=== PATIENT | male | born 1995 | race Caucasian/White ===

== ENCOUNTER 2016-11-03 17:10 | Emergency (ER) | payer OTHER ==
[~2016-11-03] VITALS: Ht 180.3 cm; Wt 95.4 kg
[2016-11-03 20:14] LABS: CALCIUM 8.6 mg/dL (8.5-10.1); CARBON DIOXIDE 29.5 mmol/L (21-32); CHLORIDE SERUM 103 mmol/L (98-107); CREATININE SERUM 0.9 mg/dL (0.7-1.3); GFR1 > 60 mL/min; GLUCOSE SERUM 91 mg/dL (74-106); POTASSIUM SERUM 3.7 mmol/L (3.5-5.1); SODIUM SERUM 141 mmol/L (136-145)
[2016-11-03 20:18] LABS: ALBUMIN 3.5 g/dL (3.4-5.0); ALKALINE PHOSPHATASE 142 U/L (46-116); ALT/SGPT 38 U/L (16-63); AMYLASE 44 U/L (25-115); AST/SGOT 17 U/L (15-37); BASOPHIL % 0.1 % (0-2); BILIRUBIN TOTAL 1.1 mg/dL (0.20-1.00); LIPASE 96 IU/L (73-393); PLATELET COUNT 205 x10^3mcL (130-400); TOTAL PROTEIN, SERUM 7.1 g/dL (6.4-8.2)
[2016-11-03 20:42] VITALS: BP 136/74
== END 2016-11-03 20:42 | disposition home or self-care (01) ==
LOC: ED 17:10
PROVIDERS: Emergency Medicine
DX: R19.7 Diarrhea, unspecified (principal); R10.13 Epigastric pain
CPT/HCPCS: 83880; J1885

== ENCOUNTER 2019-07-19 19:36 | Emergency (ER) | payer OTHER, MEDICAID ==
[~2019-07-19] VITALS: Ht 180.3 cm; Wt 112.9 kg
[2019-07-19 20:00] VITALS: BP 140/92; Ht 180.3 cm; Wt 112.9 kg
== END 2019-07-19 20:38 | disposition home or self-care (01) ==
LOC: ED 19:36
DX: S16.1XXA Strain of muscle, fascia and tendon at neck level, initial encounter (principal); M25.512 Pain in left shoulder; R51 Headache; M79.605 Pain in left leg; V43.62XA Car passenger injured in collision with other type car in traffic accident, initial encounter; Y93.89 Activity, other specified; Y92.488 Other paved roadways as the place of occurrence of the external cause; Y99.8 Other external cause status
CPT/HCPCS: J1885